=== PATIENT | male | born 1975 | race Native Hawaiian/Other Pacific Islander ===

== ENCOUNTER 2017-01-21 22:04 | Emergency (ER) | payer OTHER ==
[~2017-01-21] VITALS: Ht 167.6 cm; Wt 714.4 kg
[2017-01-21 22:11] VITALS: BP 144/100; TEMP 98.2
== END 2017-01-21 22:48 | disposition home or self-care (01) ==
LOC: ED 22:04
DX: L23.7 Allergic contact dermatitis due to plants, except food (principal)
CPT/HCPCS: 96372; 99282; J1100

== ENCOUNTER 2017-05-27 15:30 | Emergency (ER) | payer OTHER ==
[~2017-05-27] VITALS: Ht 167.6 cm; Wt 65.8 kg
[2017-05-27 16:49] LABS: PLATELET COUNT 276 K/uL (142-355); POTASSIUM 3.6 mmol/L (3.6-5.2); SODIUM 138 mmol/L (136-145)
[2017-05-27 19:25] VITALS: BP 136/86; TEMP 98
== END 2017-05-27 19:25 | disposition home or self-care (01) ==
LOC: ED 15:30
DX: R42 Dizziness and giddiness (principal)
CPT/HCPCS: 36415; 80053; 85027; 96374; 99284; J2405

== ENCOUNTER 2017-10-27 08:57 | Emergency (ER) | payer OTHER ==
[~2017-10-27] VITALS: Ht 167.6 cm; Wt 63.5 kg
[2017-10-27 09:14] VITALS: TEMP 97.7
[2017-10-27 10:03] LABS: PLATELET COUNT 326 K/uL (142-355)
[2017-10-27 10:24] LABS: POTASSIUM 3.2 mmol/L (3.6-5.2)
[2017-10-27 11:19] VITALS: BP 118/84
== END 2017-10-27 11:19 | disposition home or self-care (01) ==
LOC: ED 08:57
PROVIDERS: Family Medicine
DX: N20.0 Calculus of kidney (principal)
CPT/HCPCS: 80048; 85027; 96374; 96375; 99284; J1885; J2405

== ENCOUNTER 2018-03-28 22:55 | Emergency (ER) | payer OTHER ==
[~2018-03-28] VITALS: Ht 167.6 cm; Wt 65.8 kg
[2018-03-29 00:10] LABS: PLATELET COUNT 333 K/uL (142-355)
[2018-03-29 00:27] LABS: POTASSIUM 3.2 mmol/L (3.6-5.2)
[2018-03-29 02:09] VITALS: BP 132/71; TEMP 97.7
== END 2018-03-29 02:10 | disposition home or self-care (01) ==
LOC: ED 22:55
PROVIDERS: Internal Medicine
DX: R31.9 Hematuria, unspecified (principal); Z87.442 Personal history of urinary calculi
CPT/HCPCS: 36415; 80053; 81000; 85027; 96365; 96374; 99284; J1885

== ENCOUNTER 2018-05-29 12:48 | Emergency (ER) | payer OTHER ==
[~2018-05-29] VITALS: Ht 167.6 cm; Wt 65.8 kg
[2018-05-29 13:03] VITALS: TEMP 97.9
[2018-05-29 13:57] LABS: PLATELET COUNT 338 K/uL (142-355)
[2018-05-29 14:05] LABS: POTASSIUM 3.4 mmol/L (3.6-5.2)
[2018-05-29 16:45] VITALS: BP 148/92
== END 2018-05-29 17:00 | disposition home or self-care (01) ==
LOC: ED 12:48
DX: N45.1 Epididymitis (principal)
CPT/HCPCS: 36415; 80053; 81000; 85027; 99283

== ENCOUNTER 2020-07-16 15:54 | Emergency (ER) | payer OTHER ==
[~2020-07-16] VITALS: Ht 167.6 cm; Wt 72.6 kg
[2020-07-16 16:10] VITALS: TEMP 98.1
[2020-07-16 16:47] LABS: PLATELET COUNT 293 K/uL (142-355)
[2020-07-16 16:55] LABS: POTASSIUM 3.7 mmol/L (3.6-5.2); SODIUM 138 mmol/L (136-145)
[2020-07-16 17:51] VITALS: BP 150/84
== END 2020-07-16 17:52 | disposition home or self-care (01) ==
LOC: ED 15:54
PROVIDERS: Emergency Medicine Emergency Medical Services
DX: J20.9 Acute bronchitis, unspecified (principal); R09.1 Pleurisy; F17.210 Nicotine dependence, cigarettes, uncomplicated
CPT/HCPCS: 80053; 83735; 84484; 85027; 85610; 93005; 96360; 96361; 96365; 99284; J0696

== ENCOUNTER 2021-11-23 12:27 | Emergency (ER) | payer OTHER ==
[~2021-11-23] VITALS: Ht 167.6 cm; Wt 72.6 kg
[2021-11-23] MEDS ORDERED: KETO10TA34 PO (14:08)
[2021-11-23] MEDS ORDERED: PRED20TA27 PO (14:08)
[2021-11-23 14:40] VITALS: BP 121/84; TEMP 97.5
== END 2021-11-23 14:40 | disposition home or self-care (01) ==
LOC: ED 12:27
DX: S29.012A Strain of muscle and tendon of back wall of thorax, initial encounter (principal); X50.0XXA Overexertion from strenuous movement or load, initial encounter; Y93.H1 Activity, digging, shoveling and raking; Y92.89 Other specified places as the place of occurrence of the external cause
CPT/HCPCS: 96372; 99283; J1885

== ENCOUNTER 2022-10-22 01:08 | Emergency (ER) | payer OTHER ==
[~2022-10-22] VITALS: Ht 167.6 cm; Wt 63.5 kg
[~2022-10-22 01:08] MED LIST: KETO10TA34 PO; PRED20TA27 PO
[2022-10-22 02:16] LABS: PLATELET COUNT 351 K/uL (142-355)
[2022-10-22 02:22] LABS: POTASSIUM 2.9 mmol/L (3.6-5.2)
[2022-10-22 12:58] LABS: PLATELET COUNT 344 K/uL (142-355)
[2022-10-22 13:14] LABS: POTASSIUM 4.8 mmol/L (3.6-5.2)
[2022-10-24 20:30] VITALS: BP 118/82; TEMP 98.4
== END 2022-10-25 04:30 | disposition home or self-care (01) ==
LOC: ED 01:08
PROVIDERS: Emergency Medicine
DX: F32.9 Major depressive disorder, single episode, unspecified (principal); Z11.52 Encounter for screening for COVID-19
CPT/HCPCS: 80048; 80053; 80307; 81000; 85027; 87077; 87086; 87088; 87185; 87186; 87635; 93005; 99285; U0003

== ENCOUNTER 2022-11-16 10:30 | Emergency (ER) | payer OTHER ==
[~2022-11-16] VITALS: Ht 167.6 cm; Wt 70.3 kg
[2022-11-16 10:55] VITALS: BP 140/85; TEMP 98.4
[2022-11-16 11:20] LABS: PLATELET COUNT 281 K/uL (142-355)
[2022-11-16 11:29] LABS: POTASSIUM 3.7 mmol/L (3.6-5.2)
== END 2022-11-16 14:35 | disposition home or self-care (01) ==
LOC: ED 10:30
PROVIDERS: Emergency Medicine
DX: N39.0 Urinary tract infection, site not specified (principal); E86.0 Dehydration
CPT/HCPCS: 80053; 81000; 82272; 85027; 87086; 87088; 96374; 99284